=== PATIENT | male | born 1950 | race Caucasian/White ===

== ENCOUNTER 2024-08-13 21:35 | Emergency (ER) | payer OTHER, SELFPAY ==
[2024-08-13 21:39] VITALS: BP 179/90
--- NOTE | 2024-08-13 23:42 | ED.MUSCINJ ---
HPI-Injury
General
Chief Complaint: Musculo-Skeletal Complaint
Source: patient
Exam Limitations: none
Time Seen by Provider: 08/13/24 23:41
Nursing documentation reviewed up to this point in time: agreed with
History of Present Illness-Injury
Initial Injury comments:
74-year-old male with history of COPD, HTN, HLD, NH, CAD, BPH, cardiac cath with stents presents for neck pain. He states he awakened this morning with mild neck pain which gradually worsened throughout the day to now he cannot turn his head to the
right or the left or extend his neck without getting severe pain. No recollection of overuse or injury. Denies fever or any other infectious symptoms. He states at rest pain is 3/10 but with certain movements it goes up to 10/10. He denies
weakness, numbness or tingling in his arms.
He has taken Aleve with no relief. He states a warm compress helps
Past History
Past History
ED Past Medical History: Asthma, HTN and Hypercholesterolemia
Social History
Tobacco: Non-smoker
Review of Systems
Review of Systems
Allergies reviewed?: Yes
All Other Systems: ROS reviewed and negative except as documented in HPI and ROS
Constitutional: Denies fever
EENT: Denies sore throat
Respiratory: Denies trouble breathing
Cardiac: Denies chest pain
ABD/GI: Denies abdominal pain or nausea
Musculoskeletal: Reports neck pain; Denies back pain
Skin: Reports no symptoms
Neurological: Denies weakness or numbness
Phy Exam
Physical Exam
Physical Exam:
GENERAL: No acute distress. A&Ox3.
CONSTITUTIONAL: Afebrile.
EYES: clear, conjunctivae normal
ENMT: moist mucus membranes, Pharynx nl
RESPIRATORY: Regular respirations, nonlabored, lungs clear.
CARDIOVASCULAR: Regular rate and rhythm, no murmurs, no rubs.
GI: Soft, nontender, normal BS
MUSCULOSKELETAL: Holding head straight for comfort. Pt sitting upright on edge of bed, occasional shooting pain with head movements. Tender left base of skull and paracervical muscles. Limited ROM of neck.
SKIN: Warm, dry, pink
PSYCH: Normal mood and affect. Well kept, interactive and appropriate
NEUROLOGIC: Awake, alert and oriented. No focal neurological deficits. Hand grasps equal 5/5. Full ROM of UE's. Ambulates well.
Injury Course
Orders/Labs/Results
Orders:
Orders
08/13/24 21:44
Cervical Spine 4 or 5 Vw [CR Cervical Spine 4 Or 5 Vw] Urgent
Comment:
Reason For Exam: non traumatic neck pain, stiffness x 24h
08/14/24 00:15
Dexamethasone [Decadron] 10 mg PO NOW STA
Diazepam [Valium] 5 mg PO NOW STA
MDM/Problems Addressed
Differential Diagnosis Includes:
osteoarthritis, DJD cervical spine, cervical radiculopathy, cephalgia
MDM/Problems Addressed:
74-year-old male with history of COPD, HTN, HLD, NH, CAD, BPH, cardiac cath with stents presents for neck pain. He states he awakened this morning with mild neck pain which gradually worsened throughout the day to now he cannot turn his head to the
right or the left or extend his neck without getting severe pain. No recollection of overuse or injury. Denies fever or any other infectious symptoms. He states at rest pain is 3/10 but with certain movements it goes up to 10/10. He denies
weakness, numbness or tingling in his arms.
He has taken Aleve with no relief. He states a warm compress helps
C-spine x-ray radiology report read: FINDINGS/impression:
No vertebral compression deformity. No anterior or posterior listhesis. Advanced disc space narrowing at C6-7. Moderate to advanced narrowing at C4-5 and C5-C6. Associated endplate osteophyte formation. No prevertebral soft tissue swelling.
Bilateral facet and uncinate hypertrophy with moderate to advanced multilevel bilateral osseous neural foraminal encroachment.
Patient given a copy of his x-ray report and we reviewed together
Plan: Muscle relaxant, steroid to decrease inflammation. He has already made an appointment with orthopedics to be seen on Friday after the (3 days)
No infectious symptoms.
Case discussed with Dr. Garcia who agrees with assessment and plan
Rx for Valium and Prednisone taper sent to his pharmacy.
Pt ambulated out with normal gait at discharge
*Critical Care Note
Total Time (30-74mins, 75-104mins- exclusive of procedures): Not Applicable
ED Attending Note
-
Portions of this chart may have been created with voice recognition software.� Occasional wrong word or��sound alike� substitutions may have occurred due to the inherent limitations of voice recognition software.
Discharge Plan
Departure
Patient Disposition: Home (Routine Discharge)
Date of Disposition: 08/14/24
Time of Disposition: 00:15
Patient with high blood pressure during this ER visit?: No
Condition: Good
Discharge Problem:
DJD (degenerative joint disease) of cervical spine, Acute neck pain
Instructions: Osteoarthritis, Degenerative Disc Disease ED, Neck pain - ED discharge instructions
Prescriptions:
New
diazepam [Valium] 2 mg tablet
2 mg PO BID PRN (Reason: muscle spasm) Qty: 10 0RF
prednisone 10 mg Tablet
See Rx Instructions .ROUTE .COMPLEX Qty: 30 0RF
Rx Instructions:
Take By Mouth:
40 mg daily x3 days, 30 mg daily x3 days,
20 mg daily x3 days, 10 mg daily x3 days.
No Action
fluticasone propion-salmeterol [Advair Diskus] 250-50 mcg/dose Blister With Device
1 inh INHALATION BID
montelukast 10 mg Tablet
10 mg PO DAILY
albuterol sulfate 90 mcg/actuation Hfa Aerosol Inhaler
2 puff INHALATION QID PRN (Reason: sob)
Brilinta 90 mg Tablet
90 mg PO BID Qty: 180 3RF
atorvastatin 40 mg Tablet
40 mg PO QPM Qty: 90 3RF
Rx Instructions:
Please note increased dose
aspirin 81 mg Tablet,Chewable
81 mg PO DAILY Qty: 90 3RF
metoprolol succinate 25 mg Tablet Extended Release 24 Hr
25 mg PO HS Qty: 90 3RF
valsartan 80 mg tablet
80 mg PO DAILY Qty: 90 3RF
Rx Instructions:
Please note decreased dose
nitroglycerin [nitroglycerin] 0.4 mg tablet, sublingual
0.4 mg sublingual [id number] PRN (Reason: chest pain) Qty: 25 2RF
Referrals:
Your, orthopedic doctor [Other] - Keep scheduled appt
Guero Nicholson MD [Family Provider] -
Activity Restrictions/Additional Instructions:
As we discussed, I sent a prescription to your pharmacy for Valium 2 mg tablets to take up to twice a day as needed for muscle spasms in the neck.
This can make you sleepy and slow the reflexes so do not drive or operate any machinery within 6 hours of taking it.
I also sent a prescription to your pharmacy for a steroid taper, prednisone. Started tomorrow as you were given a dose of steroid here tonight
Warm compresses may help
Keep your appointment with your orthopedic doctor on Friday
Interventions
Interventions:
*Risk Screen - Suicide Last Done: 08/13/24 21:39
*General Assessment Last Done: 08/13/24 21:39
*Neglect/Abuse Screening Last Done: 08/13/24 21:39
*ED COVID-19 Vaccine History Last Done: 08/13/24 21:59
*Nursing Disposition Last Done: 08/14/24 00:54
ED-Musculoskeletal Assessment Last Done: 08/13/24 21:58
Discharge Date and Time
Discharge Date/Time: 08/14/24 00:55
Print Language: SWEDISH
[2024-08-14] MEDS: DECADRON 10 MG PO (00:19)
[2024-08-14] MEDS: VALIUM 5 MG PO (00:19)
== END 2024-08-14 00:55 | disposition home or self-care (01) ==
LOC: EMR 21:35
PROVIDERS: EMERGENCY PHYSICIAN Emergency Medicine; FAMILY PHYSICIAN Family Medicine
DX: M47.812 Spondylosis without myelopathy or radiculopathy, cervical region (principal); M54.2 Cervicalgia; J44.89 Other specified chronic obstructive pulmonary disease; I10 Essential (primary) hypertension; E78.00 Pure hypercholesterolemia, unspecified; I25.10 Atherosclerotic heart disease of native coronary artery without angina pectoris
CPT/HCPCS: 99283; 72050

== ENCOUNTER → 2024-08-19 11:58 | Outpatient (REF) | payer OTHER, SELFPAY | LOC: RAD 11:58 | PROVIDERS: ATTENDING PHYSICIAN Pain Medicine Interventional Pain Medicine; FAMILY PHYSICIAN Family Medicine | DX: S05.50XA Penetrating wound with foreign body of unspecified eyeball, initial encounter (principal) | CPT/HCPCS: 70030 ==